=== PATIENT | male | born 1955 | race Asian ===

== ENCOUNTER 2024-11-28 21:16 | Emergency (ER) | payer OTHER, SELFPAY ==
[2024-11-28 21:17] VITALS: BMI 23.0
--- NOTE | 2024-11-28 21:43 | PC.NURSE ---
CALLED [facility] PT FROM LOBBY/OUTSIDE, NO [email or web address]@ [phone]
[2024-11-28 22:18] VITALS: BP 132/70; PULSE 87; RESP 20; TEMP 37.1; O2SAT 99
--- NOTE | 2024-11-28 22:26 | EDNOTE_ITS ---
ED Skin Abcess FB-RME/HPI General Chief complaint: Ankle/Foot Injury Stated complaint: STEPPED ON NAIL Time Seen by Provider: 11/28/24 21:19 Source: patient, RN notes reviewed and old records reviewed Arrival date/time: 11/28/24 21:16 Mode of arrival: ambulatory Limitations: no limitations RME / HPI RME / HPI narrative: 69yom presents to ED for puncture wound of left foot that occurred today. Patient reports he was kicking boards into a pile to make a fire and a nail went through the sole of his shoe, punctured his left heel. Patient cleaned foot with soap and water after injury. He is able to ambulate without difficulty. Unknown last tetanus vacc. Related Data Home Medications ?Medication ?Instructions ?Recorded ?Confirmed famotidine 40 mg tablet 40 mg PO BID 05/04/21 hydrocodone 10 mg-acetaminophen 1 tab PO TID 05/04/21 05/11/21 325 mg tablet tamsulosin 0.4 mg capsule (Flomax) 0.4 mg PO QDAY 04/1505/11/21 Previous Rx's ?Medication ?Instructions ?Recorded acetaminophen 650 mg 650 mg PO Q8H PRN fever or p ain 11/06/22 tablet,extended release #30 tabs ibuprofen 600 mg tablet 600 mg PO Q8H PRN fever or p ain 11/06/22 #30 tabs azithromycin 500 mg tablet See Rx Instructions PO .COM PLEX #6 07/08/23 tabs benzonatate 100 mg capsule 100 mg PO TID #14 caps 06/15 12/04 levofloxacin 750 mg tablet 750 mg PO QDAY 5 days #5 ta bs 11/28/24 Allergies Allergy/AdvReac Type Severity Reaction Status Date / Time No Known Allergies Allergy Verified 07/08/23 10:07 Review of Systems Review of Systems Systems Reviewed: All systems reviewed, normal except as documented Integumentary/Breasts Skin/Breast: Denies erythema and Denies skin swelling Comments: Reports puncture wound Past Medical History Surgical History SURGICAL: Positive Knee Sx Social History SUBSTANCE USE: marijuana Past Medical History Comments PMH COMMENT: Chronic back pain, GERD ED Exam General Limitations: Present no limitations General appearance: Present alert and in no apparent distress Head Head exam: Present atraumatic and normocephalic Eye Eye exam: Present normal appearance, PERRL and EOMI ENT ENT exam: Present normal exam and mucous membranes moist Neck Neck exam: Present normal inspection and full ROM Chest Chest inspection: Present normal inspection and symmetric chest wall rise Respiratory Respiratory exam: Present normal lung sounds bilaterally; Absent respiratory distress Cardiovascular Cardiovascular exam: Present regular rate and normal rhythm Extremities Exam Extremities exam: Present normal inspection, full ROM and normal capillary refill; Absent tenderness, pedal edema or joint swelling Neurological Exam Neurological exam: Present alert and oriented X3 Psychiatric Psychiatric exam: Present normal affect and normal mood Skin Skin exam: Present other (Superficial puncture wound to plantar aspect ofleft heel. No erythema, swelling or drainage) Course Quality Measures none Orders Category Date Time Status TET,DIP/PERT AC (Adult)-Tdap [Boostrix Adult (Tdap) Med 11/28/24 22:25 Discontinued Vacc] 0.5 ml IMI .ONCE ONE Vital Signs Vital signs: Vital Signs Temperature 98.7 F 11/28/24 22:18 Pulse Rate 87 11/28/24 22:18 Respiratory Rate 20 11/28/24 22:18 Blood Pressure 132/70 H 11/28/24 22:18 Pulse Oximetry (%) 99 11/28/24 22:18 Oxygen Delivery Method Room Air 11/28/24 22:18 Skin / Abscess / Foreign Body MDM Narrative MDM Narrative:: 69yom presents to ED for puncture wound of left foot that occurred today. Patient reports he was kicking boards into a pile to make a fire and a nail went through the sole of his shoe, punctured his left heel. Patient cleaned foot with soap and water after injury. He is able to ambulate without difficulty. Unknown last tetanus vacc. Tetanus vacc updated. No current evidence of infection. Will Rx Levaquin for prophylaxis. Home wound care discussed. Stable for discharge, RTED precautions given. Patient data External records reviewed:: [facility] previous records (07/08/2023 ED visit for bronchitis) Clinical information provided by:: patient Social determinants that could affect healthcare access:: other (specify) (poor access to healthcare) Patient has the following chronic illnesses:: Chronic back pain, GERD How is presenting disease/condition affected by chronic disease/condition?: uneffected by Evaluation data The following diagnostics were reviewed and interpreted by me:: other (specify) (none) Lab and/or radiology exams considered but not ordered:: Foot x-rays: Do not suspect fracture or foreign body Interpretation Summary: na Medications / Prescriptions Medications or Prescriptions considered but not ordered:: None Medication administrations:: Medication Administration History Discontinued Medications Diphtheria/Tetanus/Acell Pertussis (Diphth,Pertuss(Acell),Tet Vac 0.5 Ml Syr- Adult) 0.5 ml IMi .ONCE ONE Stop: 11/28/24 22:26 Last Admin: 11/28/24 23:00 Dose: 0.5 ml Documented By: Above medication administered in ED Consultations Consultation(s) initiated? (list below): No Diagnosis Skin/Abscess Differential Diagnosis: other (Puncture wound, laceration, abrasion, avulsion, cellulitis, abscess, need for Tdap) Most likely diagnosis given after review of the tests above:: Puncture wound Admission Indicated Admission indicated?: not indicated Admission Request Was there a request for admission?: No Disposition Plan Disposition Plan: Discharge Discharge Attestation Discharge Attestation: The patient and all family members were given an opportunity to ask questions and understood the discharge instructions. Discharge instructions specifically effects, indications for sooner follow up or return to the emergency department, and the expected course of current diagnosis. Patient condition: Stable Discharge Plan Plan Patient Disposition: HOME (Self Care) Patient condition on transfer: Stable Prescriptions/Referrals Prescriptions/Med Rec: New levofloxacin 750 mg tablet 750 mg PO QDAY 5 Days Qty: 5 0RF No Action famotidine 40 mg Tablet 40 mg PO BID hydrocodone-acetaminophen 10-325 mg tablet 1 tab PO TID tamsulosin [Flomax] 0.4 mg Capsule 0.4 mg PO QDAY acetaminophen 650 mg tablet extended release 650 mg PO Q8H PRN (Reason: fever or pain) Qty: 30 0RF Rx Instructions: swallow whole; do not chew/break/dissolve/open ibuprofen 600 mg tablet 600 mg PO Q8H PRN (Reason: fever or pain) Qty: 30 0RF benzonatate 100 mg capsule 100 mg PO TID Qty: 14 0RF azithromycin 500 mg tablet See Rx Instructions .ROUTE .COMPLEX Qty: 6 0RF Rx Instructions: take 500 mg today (day 1), then 250 mg for 4 days (days 2-5) Problem List Clinical Impression: Puncture wound of foot, left Patient/Caregiver Discharge Instructions Education Materials: ED Puncture Wound (Foot) Print Language: Danish Stand Alone Forms: [email or web address] Patient Portal Info Letter PA/OVERLOCK WAISTLINE JOINER Supervising Physician PA/OVERLOCK WAISTLINE JOINER Supervising Physician: Gordon
[2024-11-28] MEDS: DIPHTH,PERTUSS(ACELL),TET VAC 0.5 ML SYR- ADULT IMi (23:00)
== END 2024-11-28 23:15 | disposition home or self-care (01) ==
LOC: SERX 23:21
PROVIDERS: Emergency Provider Emergency Medicine
DX: S91.332A Puncture wound without foreign body, left foot, initial encounter (principal); W45.0XXA Nail entering through skin, initial encounter; Z23 Encounter for immunization
CPT/HCPCS: 90471; 90715; 99282